=== PATIENT | male | born 1990 | race Caucasian/White ===

== ENCOUNTER 2017-11-09 23:47 | Emergency (ER) | payer SELFPAY ==
[~2017-11-09] VITALS: Ht 180.3 cm; Wt 82.0 kg
[2017-11-10 00:30] VITALS: BP 152/72; PULSE 79; RESP 17; TEMP 98.1; O2SAT 98
== END 2017-11-10 03:58 | disposition left against medical advice (07) ==
LOC: NED 23:47
DX: R10.9 Unspecified abdominal pain (principal); Z53.21 Procedure and treatment not carried out due to patient leaving prior to being seen by health care provider
CPT/HCPCS: 99281